=== PATIENT | female | born 1995 | race Caucasian/White ===

== ENCOUNTER 2024-11-14 09:52 | Emergency (ER) | payer SELFPAY ==
[2024-11-14 09:54] VITALS: BP 120/80
[2024-11-14 11:41] VITALS: BP 101/57
[2024-11-14] MEDS: OMNIPAQUE 50 ML PO (11:43)
--- NOTE | 2024-11-14 11:44 | ED.GENMED ---
History of Present Illness
<Aime Sheldon, DO - Last Filed: 11/14/24 14:45>
General
Chief Complaint: Abdominal Pain
Time Seen by Provider: 11/14/24 11:09
<Varghese Hastings DO, Resident - Last Filed: 11/14/24 14:51>
General
Source: patient
History of Present Illness
History of Present Illness:
29-year-old female with a past medical history of suspected heart arrhythmia, fainting spell in college and subjective irregular heart rate (no formal diagnosis) presents for right lower quadrant pain of approximately once in duration. Patient
states that the pain was dull/deep and started when she was stretching at the gym. Patient reports this morning around 9 AM when she was doing a handstand her pain was exacerbated, she described it as sharp and stabbing and she begun having
vasovagal like symptoms such as paleness and sensation of hypotension. Patient reports typically her pain is mild, worse in the a.m, and nothing makes it better or worse. She had previous STI testing which was negative. She has seen her primary
care physician and urgent care for this in the past, primary care physician ordered a CAT scan which she was never able to complete. In the emergency department patient endorses diffuse abdominal pain and right lower, left lower and right upper
quadrants, worse with deep palpation of the right lower quadrant. Of note patient reports she has an IUD and has not had a menstrual cycle for years.
Past History
<Varghese Hastings DO, Resident - Last Filed: 11/14/24 14:51>
Past History
ED Past Medical History: Other (Suspected arrhythmia (never diagnosed), fainting episode in college)
ED Past Surgical History: None
Review of Systems
<Varghese Hastings DO, Resident - Last Filed: 11/14/24 14:51>
Review of Systems
Constitutional: Reports no symptoms; Denies fever or fatigue
Respiratory: Reports no symptoms
Cardiac: Reports no symptoms
ABD/GI: Reports abdominal pain (Diffuse, worse in right lower quadrant); Denies nausea, vomiting or diarrhea
Neurological: Reports no symptoms
Psychiatric: Reports no symptoms
Phy Exam
<Varghese Hastings DO, Resident - Last Filed: 11/14/24 14:51>
General Physical Exam
General Presentation: well appearing and no apparent distress
General Skin: warm and dry
Cardiovascular Exam
Cardiovascular Exam: regular rate/rhythm, no edema and no murmur
Pulmonary Exam
Pulmonary Exam: lungs clear and no respiratory distress
Gastrointestinal Exam
Gastrointestinal Exam: normal bowel sounds, soft, non distended, tender (Diffusely tender, worse to deep palpation in right lower quadrant. Also tender left lower and right upper quadrant. Nontender left upper quadrant) and other (Pain worse with
deep palpation, no rebound or guarding on exam)
Course
<Aime Sheldon DO - Last Filed: 11/14/24 14:45>
Orders/Labs/Results
Orders:
Orders
11/14/24 11:32
CT Abd/pel W Iv And Oral Contr Urgent
Comment:
Reason For Exam: Right lower quadrant abdominal pain
Iohexol [Omnipaque] See Protocol PO NOW STA
11/14/24 11:39
Test Result ONCE
11/14/24 11:43
Complete Blood Count/With Diff Urgent
Comprehensive Metabolic Panel Urgent
HCG, Serum Qualitative Screen Urgent
Lipase Urgent
Urinalysis Reflex To Culture Urgent
Date Specimen was Collected: 11/14/24
Time Specimen was Collected: 11:39
Abnormal Lab Results
11/14/24
11:43
RBC 4.12 L 10^6/uL
(4.20-5.40)
MCH 33.3 H pg
(27.0-31.0)
RDW 11.2 L %
(11.5-14.5)
Absolute Lymphs (auto) 1.1 L 10^3/uL
(1.2-3.4)
Neutrophils % 75.8 H %
(42.2-75.2)
Lymphocytes % 15.4 L %
(20.5-51.1)
11/14/24 11:43
11/14/24 11:43
Vital Signs
Initial and Last Documented VS:
Initial Vital Signs
Temp Pulse Resp BP Pulse Ox
97.8 F 73 16 120/80 100
11/14/24 09:54 11/14/24 09:54 11/14/24 09:54 11/14/24 09:54 11/14/24 09:54
Last Documented Vital Signs
Temp Pulse Resp BP Pulse Ox
97.8 F 73 16 108/72 100
11/14/24 09:54 11/14/24 09:54 11/14/24 09:54 11/14/24 12:00 11/14/24 13:45
<Varghese Hastings DO, Resident - Last Filed: 11/14/24 14:51>
Orders/Labs/Results
Orders:
Orders
11/14/24 11:32
CT Abd/pel W Iv And Oral Contr Urgent
Comment:
Reason For Exam: Right lower quadrant abdominal pain
Iohexol [Omnipaque] See Protocol PO NOW STA
11/14/24 11:39
Test Result ONCE
11/14/24 11:43
Complete Blood Count/With Diff Urgent
Comprehensive Metabolic Panel Urgent
HCG, Serum Qualitative Screen Urgent
Lipase Urgent
Urinalysis Reflex To Culture Urgent
Date Specimen was Collected: 11/14/24
Time Specimen was Collected: 11:39
Abnormal Lab Results
11/14/24
11:43
RBC 4.12 L 10^6/uL
(4.20-5.40)
MCH 33.3 H pg
(27.0-31.0)
RDW 11.2 L %
(11.5-14.5)
Absolute Lymphs (auto) 1.1 L 10^3/uL
(1.2-3.4)
Neutrophils % 75.8 H %
(42.2-75.2)
Lymphocytes % 15.4 L %
(20.5-51.1)
11/14/24 11:43
11/14/24 11:43
Vital Signs
Initial and Last Documented VS:
Initial Vital Signs
Temp Pulse Resp BP Pulse Ox
97.8 F 73 16 120/80 100
11/14/24 09:54 11/14/24 09:54 11/14/24 09:54 11/14/24 09:54 11/14/24 09:54
Last Documented Vital Signs
Temp Pulse Resp BP Pulse Ox
97.8 F 73 16 108/72 100
11/14/24 09:54 11/14/24 09:54 11/14/24 09:54 11/14/24 12:00 11/14/24 13:45
<Varghese Hastings DO, Resident - Last Filed: 11/14/24 14:51>
MDM/Problems Addressed
Differential Diagnosis Includes:
Ovarian cyst, appendicitis, musculoskeletal strain, pancreatitis
MDM/Problems Addressed:
29 female past medical history of suspected heart arrhythmia and ovarian cysts presents for right lower quadrant pain approximate 3 months duration with acute worsening this morning
Patient has seen her primary care physician and urgent care for this previously, PCP ordered CT scan which she was never able to complete
Previous STI/STD testing was negative, has IUD and has not had a menstrual cycle for years
Abdomen tender to palpation in right lower, left lower and right upper quadrant. No rebound or guarding present on exam
Will order CT abdomen pelvis with IV and oral contrast
Check CBC, CMP, lipase, urine beta-hCG
Chemistry within normal limits, no leukocytosis or anemia on CBC, lipase within normal limits, urine beta-hCG negative, urinalysis appears noninfected
Symptomatic management, currently patient is not requiring any pain medication
CT abdomen pelvis with IV and oral contrast demonstrated free fluid in pelvis, likely sequela of recent ruptured ovarian cyst-uterine myoma cannot be excluded
Hemoglobin within normal limits, vital signs stable
<Varghese Hastings DO, Resident - Last Filed: 11/14/24 14:51>
*Critical Care Note
Total Time (30-74mins, 75-104mins- exclusive of procedures): Not Applicable
ED Attending Note
<Aime Sheldon DO - Last Filed: 11/14/24 14:45>
ED Attending Note
Patient seen and examined by attending physician: Yes
I performed a history and physical exam of patient and discussed management with resident, I reviewed resident's note and agree with documented findings and plan of care.: Yes
ED Attending Note:
I have reviewed and agree with history and treatment plan by Alyssa Hastings DO. My exam revealed 29-year-old female with mild tenderness to palpation without rebound or guarding bilateral lower abdomen. Concern for ovarian cyst versus
appendicitis. CT abdomen pelvis pending.
<Varghese Hastings DO, Resident - Last Filed: 11/14/24 14:51>
-
Portions of this chart may have been created with voice recognition software.� Occasional wrong word or��sound alike� substitutions may have occurred due to the inherent limitations of voice recognition software.
Discharge Plan
Departure
Patient Disposition: Home (Routine Discharge)
Date of Disposition: 11/14/24
Time of Disposition: 14:48
Patient with high blood pressure during this ER visit?: No
Condition: Good
Discharge Problem:
Ovarian cyst rupture
Instructions: Ovarian Cyst (DC)
Referrals:
UNKNOWN - PT DOES,NOT KNOW [Family Provider] -
Activity Restrictions/Additional Instructions:
Please follow-up with your established [facility]PL[facility] when you return to [place]
Please use Tylenol and/or ibuprofen by mouth, [id number], as needed for pain
Please return to the emergency department if your symptoms worsen or return or with any concerns
Interventions
Interventions:
*Risk Screen - Suicide Last Done: 11/14/24 09:54
*General Assessment Last Done: 11/14/24 09:54
*Neglect/Abuse Screening Last Done: 11/14/24 09:54
ED- Fall Risk Assessment Last Done: 11/14/24 11:34
*ED COVID-19 Vaccine History Last Done: 11/14/24 09:54
PY-Nyngsw-Oxiginpnat Assessment Last Done: 11/14/24 11:34
Discharge Date and Time
Print Language: TELUGU
[2024-11-14 11:45] VITALS: BMI 27.5
[2024-11-14 11:59] LABS: Urine Albumin Negative (Neg - Trace); Urine Bilirubin Negative (Negative); Urine Character Clear (Clear); Urine Color Yellow; Urine Glucose Negative (Negative); Urine Ketone Negative (Negative); Urine Leukocyte Negative (Negative); Urine Nitrite Negative (Negative); Urine Occult Blood Negative (Negative); Urine Urobilinogen Negative (Neg - 1+)
[2024-11-14 12:00] VITALS: BP 108/72
[2024-11-14 12:04] LABS: % Basophils 0.3 % (0-2); % Eosinophils 1.3 % (0-6); % Immature Granulocytes 0.3 % (0-0.5); % Lymphocytes 15.4 % (20.5-51.1); % Monocytes 6.9 % (1.7-9.3); % Neutrophils 75.8 % (42.2-75.2); Absolute Eosinophils 0.1 10^3/uL (0-0.7); Absolute Lymphocytes 1.1 10^3/uL (1.2-3.4); Absolute Monocytes 0.5 10^3/uL (0.1-0.6); Absolute Neutrophils 5.6 10^3/uL (1.4-6.5); Hematocrit 39.5 % (37.0-47.0); Hemoglobin 13.7 g/dL (12.0-16.0); Mean Corp Hgb Conc. 34.7 g/dL (33.0-37.0); Mean Corpuscular Hgb 33.3 pg (27.0-31.0); Mean Corpuscular Volume 95.9 fL (81.0-99.0); Mean Platelet Volume 8.9 fL (7.4-10.4); Nucleated Red Blood Cells % 0 %; Platelet Count 257 10^3/uL (130-400); Red Blood Cell Count 4.12 10^6/uL (4.20-5.40); Red Cell Dist. Width 11.2 % (11.5-14.5); White Blood Cell Count 7.4 10^3/uL (4.8-10.8)
[2024-11-14 12:11] LABS: ALT (SGPT) 13 U/L (0-35); AST (SGOT) 23 U/L (14-36); Albumin 4.3 g/dl (3.5-5.0); Alkaline Phosphatase 39 U/L (38-126); Blood Urea Nitrogen 16 mg/dl (7-17); Calcium 9.4 mg/dl (8.4-10.2); Carbon Dioxide 26 mmol/L (22-30); Chloride 103 mmol/L (98-107); Estimated Creatinine Clearance > 125 ml/min; Glucose 89 mg/dl (70-99); Lipase 58 U/L (23-300); Potassium 4.3 mmol/L (3.5-5.1); Sodium 135 mmol/L (135-145); Total Bilirubin 0.7 mg/dl (0.2-1.3); eGFR > 60.00
[2024-11-14 12:27] LABS: HCG, Serum Qualitative Screen Negative
== END 2024-11-14 14:59 | disposition home or self-care (01) ==
LOC: EMR 09:52
PROVIDERS: EMERGENCY PHYSICIAN Emergency Medicine
DX: N83.201 Unspecified ovarian cyst, right side (principal); Z97.5 Presence of (intrauterine) contraceptive device
CPT/HCPCS: 99284; 74177; 80053; 81003; 83690; 84703; 85025; Q9967